=== PATIENT | female | born 1960 | race Caucasian/White ===

== ENCOUNTER → 2018-03-19 | Outpatient (CLI) | payer BC ==
[~2018-03-19] MED LIST: ALLEGRA 180MG180 MG PO; CENTRUM SILVER1 CTB PO; CITRUS CALCIUM200 MG PO; SYNTHROID0.1 MG/TAB PO
== END ==
LOC: MC.RAD 15:36
DX: Z12.31 Encounter for screening mammogram for malignant neoplasm of breast (principal)

== ENCOUNTER → 2020-08-03 | Outpatient (CLI) | payer BC | LOC: MC.RAD 08:00 | DX: Z12.31 Encounter for screening mammogram for malignant neoplasm of breast (principal) ==

== ENCOUNTER → 2020-12-27 | Outpatient (CLI) | payer BC | LOC: COL.RAD 14:22 | DX: J32.9 Chronic sinusitis, unspecified (principal); R22.2 Localized swelling, mass and lump, trunk ==

== ENCOUNTER → 2024-01-28 | Outpatient (CLI) | payer BC | LOC: MC.RAD 12:58 | DX: Z12.31 Encounter for screening mammogram for malignant neoplasm of breast (principal) ==